=== PATIENT | male | born 1995 | race African-American/Black ===

== ENCOUNTER 2017-07-10 11:23 | Emergency (ER) | payer BC ==
[~2017-07-10] VITALS: Ht 175.3 cm; Wt 78.2 kg
[2017-07-10 11:26] VITALS: BP 129/80; PULSE 59; TEMP 36.6; O2SAT 96; Ht 175.3 cm; Wt 78.2 kg
--- NOTE | 2017-07-10 12:54 | DIAGNOSTIC IMAGING REPORT ---
C-SPINE ROUTINE 4 OR 5 VIEWS HISTORY: Trauma contact injury; R lower neck COMPARISON: None. FINDINGS: The cervical spine is visualized from C1 through the superior endplate of T1. There is no fracture. No subluxation. Disc spaces are preserved. Prevertebral soft tissues and the atlantodens interval are intact. IMPRESSION: No fracture or subluxation within the cervical spine. The above report was generated using voice recognition software. It may contain grammatical, syntax or spelling errors. Electronically signed by: West Valentino M.D. 07/10/2017 12:53 PM Dictated Date/Time: 07/10/2017 12:52 PM
--- NOTE | 2017-07-10 12:54 | DIAGNOSTIC IMAGING REPORT ---
LEFT SHOULDER 3 VIEWS HISTORY: L shoulder pain COMPARISON: None. FINDINGS: There is no fracture or dislocation. Soft tissues are unremarkable. No radiopaque foreign bodies. The left clavicle is intact. IMPRESSION: No fractures. Electronically signed by: Parminder Diop M.D. 07/10/2017 12:52 PM Dictated Date/Time: 07/10/2017 12:51 PM
--- NOTE | 2017-07-10 12:55 | DIAGNOSTIC IMAGING REPORT ---
THORACIC SPINE 3 VIEWS HISTORY: contact injury; L thoracic pain COMPARISON: None. FINDINGS: There is no fracture. No subluxation. Disc spaces are preserved. IMPRESSION: No fracture or subluxation within the thoracic spine. Electronically signed by: Parminder Diop M.D. 07/10/2017 12:54 PM Dictated Date/Time: 07/10/2017 12:52 PM
--- NOTE | 2017-07-10 13:08 | DIAGNOSTIC IMAGING REPORT ---
(SPLEEN) ABD LTD CLINICAL HISTORY: 21 years-old Male presenting with contact injury; lateral LUQ pain. TECHNIQUE: Real-time grayscale ultrasound imaging of the left upper quadrant was performed. Color Doppler was also performed. COMPARISON: None. FINDINGS: Normal echogenicity and size of the spleen, which measures 9.3 cm in maximal sagittal dimension. Normal color Doppler vascularity at the splenic hilum. No perisplenic or subcapsular fluid. Left kidney also grossly normal in size and appearance with normal perfusion. No hydronephrosis. No free fluid. IMPRESSION: 1. No sonographic evidence of acute injury in the left upper quadrant. Electronically signed by: Aubrey Stone M.D. 07/10/2017 1:06 PM Dictated Date/Time: 07/10/2017 1:05 PM
--- NOTE | 2017-07-11 11:00 | EMERGENCY ROOM VISIT NOTE ---
ED Visit Note First contact with patient: 11:43 Chief Complaint: Shoulder pain. History of Present Illness: Mr. Bassett is a 21-year-old black male who ambulates into the ED accompanied by female friend complaining of left shoulder pain, neck pain, thoracic back pain, left upper quadrant pain. Patient reports he was doing and agility drill yesterday by running forward and then backwards on the playing field. He reports when he was running backwards he ran into another player and was thrown to the ground and then slid approximately 10 yards. He reports at the time of the injury he did not strike his head or have a loss of consciousness and since the injury he has had no signs of head injury. Currently he is complaining of left shoulder pain. This pain is located over the first but not his muscle. He describes this pain as a deep achy sensation. He rates this discomfort 6/10. The pain is nonradiating. The pain worsens with palpation. He has not identified any alleviating factors related to the pain. He has not taken any medications for pain prior to arrival at the hospital. Additionally he complains of cervical spine pain over the right trapezius muscle over the cervical portion lateral to the bony spine at the level of C5 and C6. Once again this is an achy pain. He rates his discomfort 2/10. The pain is nonradiating. Pain worsens with palpation. He has not identified any alleviating factors related to the pain. Additionally he is complaining of midthoracic pain just right lateral to the spine at the level of T4-T5. He describes this as a sharp pain. He rates this discomfort 3/10. The pain is nonradiating. His pain worsens with palpation. He has not identified any alleviating factors related to the pain. Additionally he is complaining of left lateral upper quadrant abdominal pain. He describes this as more of a sharp pain. He rates his discomfort 3/10. The pain is nonradiating. Pain worsens with palpation. He has not identified any alleviating factors related to the pain. He reports taking 1 dose of ibuprofen prior to arrival at the hospital without relief of any of his discomforts. He denies headache, dizziness, lightheadedness, abnormal neurological symptoms, bony spine pain of the cervical and thoracic spine, chest pain, shortness of breath, difficulty breathing, upper extremity weakness/numbness/tingling, anterior abdominal pain, nausea, vomiting, diarrhea, constipation, urinary symptoms, hematuria. Review of Systems: As noted above in history of present illness. 8 body systems were reviewed and found to be negative as noted above. Past Medical History: Asthma, bronchitis, pneumonia. Current Medications: Patient denies. 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 Physical Examination: Vital Signs: Date Time Temp Pulse Resp B/P (MAP) Pulse Ox O2 Delivery O2 Flow Rate FiO2 07/10/17 11:26 36.6 59 20 129/80 96 Room Air GENERAL: 21-year-old male in mild distress due to pain, nontoxic-appearing, afebrile and hemodynamically stable. NEUROLOGICAL: Awake, alert and oriented to person, place and time. Answering questions appropriately and following commands. Normal gait. Good hand eye coordination. No focal motor or sensory deficits. Cranial nerves II through XII grossly intact. Good short-term and long-term recall. SKIN: Warm, dry and pink. No soft tissue trauma noted. HEENT: Atraumatic and normocephalic. Skull: No bony deformity, crepitus, tenderness or depressions. No raccoon's eyes or corona signs. No drainage from the ears or the nostril; no hemotympanum. Face: No bony tenderness, swelling or ecchymosis. PERRLA. EOMI without nystagmus. No malocclusion. No intraoral trauma. Airway patent. Speech is normal. Trachea midline. No jugular venous distention. BACK: No tenderness over the bony cervical and thoracic spine. Full range of motion of the cervical spine. Moderate tenderness over the right trapezius muscle in the cervical and thoracic portions. No soft tissue trauma, swelling or bruising. No palpable muscle spasm. No CVA tenderness. THORAX: Lungs sounds are clear to auscultation and equal bilaterally with symmetrical chest wall. No wheezing, rales or rhonchi. Minimal tenderness over the left lateral lower ribs without crepitus, subcutaneous air or deformities noted. ABDOMEN: Flat and soft with minimal tenderness in the anterior and lateral aspect of the left upper quadrant and nontender. Positive bowel sounds in all quadrants. No guarding, rigidity or organomegaly. LEFT UPPER EXTREMITY: No gross bony deformity. Tenderness over the posterior aspect of the shoulder in the area of the supraspinatus muscle without bony deformity, bony crepitus, ecchymosis or swelling. No tenderness over the clavicle, acromioclavicular joint, humeral head or bony scapula. Full range of motion in all movements of the shoulder. 5/5 muscle strength in flexion, extension, abduction, abduction and internal rotation of the shoulder against resistance. Throughout the arm the skin was warm and pink and capillary refill is brisk. Distal pulses and sensations were intact. ED Course: Patient is assessed as noted above. Patient's medication list was reviewed. Cervical Spine X-Rays: Were read by myself and the radiologist showing no acute fractures or subluxations. Thoracic Spine X-Rays: Were read by myself and the radiologist showing no acute fractures or subluxations. Left Shoulder X-Rays: Were read by myself and the radiologist showing no fractures or dislocations. Left Upper Quadrant Ultrasound: Were reviewed by myself and read by the radiologist showing no evidence of acute injury to the left upper quadrant with a normal appearance of the spleen and kidney. Patient was offered pain medication and refused. Patient's left upper extremity was placed in a sling. Patient was educated about today's findings and instructed on his treatment plan ; he verbalized understanding and agreement with this plan. Clinical Impression: Shoulder pain. Cervical and thoracic back pain. Left upper quadrant pain. Status post fall. Decision-Making: Initially my differential diagnosis I considered bony fractures , sprains, strains, acromioclavicular joint separation, shoulder dislocation, splenic fracture, kidney fracture and other causes. Disposition: Patient discharged home in stable condition; prior to departure he was reassessed and subjectively reported he was feeling the same. Plan: For measures were discussed with the patient including alternating ibuprofen and acetaminophen, ice on areas of pain, sling use. Patient was encouraged to follow-up with [facility] for recheck if no better in 3-5 days. Patient was encouraged return ED for worsening/uncontrolled pain, other abdominal pains, vomiting, fevers, bloody stools, bloody urine or any new/ concerning symptoms.
== END 2017-07-10 13:46 | disposition home or self-care (01) ==
LOC: C.EDB 11:25 → C.EDD 13:46
DX: M25.512 Pain in left shoulder (principal); M54.2 Cervicalgia; M54.6 Pain in thoracic spine; R10.12 Left upper quadrant pain; J45.909 Unspecified asthma, uncomplicated; Z87.01 Personal history of pneumonia (recurrent); Z87.09 Personal history of other diseases of the respiratory system; F17.200 Nicotine dependence, unspecified, uncomplicated; W19.XXXA Unspecified fall, initial encounter